=== PATIENT | female | born 1995 | race Caucasian/White ===

== ENCOUNTER → 2023-12-04 14:20 | Outpatient (REF) | payer OTHER, SELFPAY | LOC: HWRAD 14:20 | PROVIDERS: ATTENDING PHYSICIAN Obstetrics & Gynecology; FAMILY PHYSICIAN Family Medicine | DX: Z34.90 Encounter for supervision of normal pregnancy, unspecified, unspecified trimester (principal) | CPT/HCPCS: 76801 ==

== ENCOUNTER → 2024-03-01 13:33 | Outpatient (REF) | payer OTHER, SELFPAY | LOC: PNTC 13:33 | PROVIDERS: ATTENDING PHYSICIAN Obstetrics & Gynecology | DX: Z36.0 Encounter for antenatal screening for chromosomal anomalies (principal); Z34.90 Encounter for supervision of normal pregnancy, unspecified, unspecified trimester | CPT/HCPCS: 76805 ==

== ENCOUNTER 2024-07-04 08:46 | Inpatient (IN) | payer OTHER, SELFPAY ==
[2024-07-04 09:03] VITALS: BP 111/85; BMI 28.0
[2024-07-04] MEDS: LR 1000 IV (09:15)
[2024-07-04 09:33] LABS: Hematocrit 27.8 % (37.0-47.0); Hemoglobin 9.2 g/dL (12.0-16.0); Mean Corp Hgb Conc. 33.1 g/dL (33.0-37.0); Mean Corpuscular Hgb 25.9 pg (27.0-31.0); Mean Corpuscular Volume 78.3 fL (81.0-99.0); Mean Platelet Volume 10.8 fL (7.4-10.4); Platelet Count 297 10^3/uL (130-400); Red Blood Cell Count 3.55 10^6/uL (4.20-5.40); Red Cell Dist. Width 15.4 % (11.5-14.5); White Blood Cell Count 12.4 10^3/uL (4.8-10.8)
[2024-07-04] MEDS: TYLENOL 1000 MG PO (10:23)
[2024-07-04] MEDS: BICITRA 30 ML PO (10:23)
[2024-07-04] MEDS: GENTAMICIN 59.5 MG IV ×2 (10:24)
[2024-07-04] MEDS: CLEOCIN 50 IV (10:25)
[2024-07-04] MEDS: MORPHINE SULFATE 2 MG IV (13:06)
[2024-07-04] MEDS: TORADOL 15 MG IV ×2 (17:04→23:27)
[2024-07-04] MEDS: ZOFRAN 4 MG IV (23:30)
[2024-07-05] MEDS: TUMS CHEWABLE TABLET 400 MG PO (00:17)
[2024-07-05] MEDS: PROTONIX 40 MG PO (00:54)
[2024-07-05 05:40] LABS: Hematocrit 27.4 % (37.0-47.0); Hemoglobin 9.2 g/dL (12.0-16.0); Mean Corp Hgb Conc. 33.6 g/dL (33.0-37.0); Mean Corpuscular Hgb 27.4 pg (27.0-31.0); Mean Corpuscular Volume 81.5 fL (81.0-99.0); Mean Platelet Volume 11.5 fL (7.4-10.4); Platelet Count 340 10^3/uL (130-400); Red Blood Cell Count 3.36 10^6/uL (4.20-5.40); Red Cell Dist. Width 15.1 % (11.5-14.5); White Blood Cell Count 19.8 10^3/uL (4.8-10.8)
[2024-07-05] MEDS: TORADOL 15 MG IV ×2 (06:11→13:08)
--- NOTE | 2024-07-05 08:19 | W.PN.ANS.POP ---
Anesthesia Post Operative
- Anesthesia Post Op Note
Vital Signs Stable-See Nursing Note: Yes
Airway Patent: Yes
Adequate Pain Control: Yes
Change in Mental Status: No
Current Postoperative Nausea & Vomiting: No
Anesthesia Complications: No
General Anesthetic Recall: No
Unplanned Admission: No
Post Op Hydration Adequate: Yes
[2024-07-05] MEDS: SENOKOT-S 1 TABLET PO (09:47)
[2024-07-05] MEDS: MYLICON 80 MG PO ×3 (09:47→19:40)
[2024-07-05 15:19] LABS: Syphilis/T. pallidum Ab Reflex Negative (Negative)
[2024-07-05] MEDS: FEOSOL 325 MG PO (16:42)
[2024-07-05] MEDS: TYLENOL 650 MG PO (18:16)
[2024-07-05] MEDS: MOTRIN 600 MG PO (19:40)
--- NOTE | 2024-07-06 04:04 | DOWNTIME ---
There was a [employer] Downtime on 07/06/2024 from 0100 to 07/06/2024 at 0355. Downtime documentation of patient's care, including medication administrations, has been reconciled in the electronic record per guidelines. Refer to the
patient's paper chart under the miscellaneous tab to see printed paper medication records and downtime forms.
[2024-07-06] MEDS: MOTRIN 600 MG PO (05:42)
[2024-07-06] MEDS: SENOKOT-S 1 TABLET PO (08:17)
[2024-07-06] MEDS: FEOSOL 325 MG PO (08:17)
--- NOTE | 2024-07-06 10:12 | W.DS.TRANS ---
DC Summary - [employer]
-
Discharge Instructions:
Discharge Diagnosis/Procedures delivered by repeat csection;
bilateral salpingectomy; anemia, asymptomatic
Diet Regular
Activity No strenuous activity
Driving Restrictions No driving for 2 weeks
Bathing Restrictions OK to Shower
Instructions:
Stand-Alone Forms: LDRP Delivery
Changes to Home Medications: No
Discharge Medications:
DC Medications w/original date entered in [facility]
dexlansoprazole 60 mg capsule,biphase delayed release (Dexilant) 60 mg PO PRN PRN heartburn 07/04/24
acetaminophen 325 mg tablet 650 mg (2 x 325 mg) PO Q4HPRN PRN mild pain #0 tabs 07/06/24
ferrous sulfate 325 mg (65 mg iron) tablet (FeroSul) 325 mg PO DAILY #0 tabs 07/06/24
ibuprofen 600 mg tablet 600 mg PO Q6HPRN PRN cramps #60 tabs 07/06/24
sennosides 8.6 mg-docusate sodium 50 mg tablet 1 tab PO DAILYPRN PRN constipation #0 tabs 07/06/24
Home Medication Changes
Pending Results: No
Total time spent discharging patient (in min): 20
== END 2024-07-06 12:13 | disposition home or self-care (01) | DRG 785 ==
LOC: LDRP 08:46
PROVIDERS: ADMITTING PHYSICIAN Obstetrics & Gynecology
PROC: 0UT70ZZ Resection of Bilateral Fallopian Tubes, Open Approach (ICD-10-PCS; 2024-07-04)
PROC: 10D00Z1 Extraction of Products of Conception, Low, Open Approach (ICD-10-PCS; 2024-07-04)
DX: O34.211 Maternal care for low transverse scar from previous cesarean delivery (principal); Z3A.39 39 weeks gestation of pregnancy; Z37.0 Single live birth; Z30.2 Encounter for sterilization; F32.A Depression, unspecified; I34.1 Nonrheumatic mitral (valve) prolapse; O99.344 Other mental disorders complicating childbirth; Z87.891 Personal history of nicotine dependence; Z80.6 Family history of leukemia; Z81.8 Family history of other mental and behavioral disorders; Z83.3 Family history of diabetes mellitus; Z88.0 Allergy status to penicillin; Z87.440 Personal history of urinary (tract) infections; O90.81 Anemia of the puerperium; D64.9 Anemia, unspecified
CPT/HCPCS: 88302; 36415; 58605; 85027; 86780; 86850; 86900; 86901